=== PATIENT | male | born 1975 | race Native Hawaiian/Other Pacific Islander ===

== ENCOUNTER 2019-04-10 22:54 | Emergency (ER) | payer SELFPAY ==
--- NOTE | 2019-04-10 23:07 | ED Physician Documentation ---
PD HPI HEENT - Stated complaint Stated Complaint: EAR PX - History obtained from History obtained from: Patient - History of Present Illness Timing - onset: How many days ago (3) Timing - duration: Days (3) Timing - details: Gradual onset Location: Right ear Improves: Nothing Associated symptoms: Congestion. No: Fever, Rhinorrhea Recently seen: Not recently seen - Additional information Additional information: This is a 43-year-old man who presents with his complaints that he started to have some pain in the right ear 3 to 4 days ago and is gotten increasingly more swollen since that time. He says he has a high tolerance for pain so is r eally not hurting him that much just feels kind of numb back behind the ear. There was not ever any trauma. He feels like the ear is really raw and it is draining out "pus". He tried to flush it when he was having the discomfort when this first started and that was after that that the swelling started. He denies trauma to the ear. He does not wear hearing aid but he uses earplugs a lot. He has chronic hearing loss. He is not been running a fever. He is not diabetic. He works as a contractor. Review of Systems Constitutional: denies: Fever Ears: reports: Loss of hearing, Ear pain, Drainage/discharge Nose: reports: Congestion. denies: Rhinorrhea / runny nose Throat: denies: Sore throat PD PAST MEDICAL HISTORY - Present Medications Home Medications: Ambulatory Orders Medication Instructions Recorded Confirmed Ciprofloxacin HCl [Cipro] 500 mg PO BID #20 tablet 04/11/19 Neomycin/Polymyx/Hc Otic Drops 4 drops OT TID #1 bottle 04/11/19 [Cortisporin Ear Susp] - Allergies Allergies/Adverse Reactions: Allergies Allergy/AdvReac Type Severity Reaction Status Date / Time No Known Drug Allergies Allergy Verified 04/10/19 23:08 PD ED PE NORMAL - Vitals Vital signs reviewed: Yes - General General: Alert and oriented X 3, No acute distress, Well developed/nourished - HEENT HEENT: Atraumatic, Moist mucous membranes, Other (The right ear is diffusely swollen along the tragus the helix and antihelix and down into the ear canal. The ear canal is squeezed almost shut and there is a white debris in the ear canal itself. The mastoid is firm and not soft. He does not seem to have any pain with palpation along that region. There are no obvious pre-or postauricular nodes. The left ear canal was normal and the TM appears normal.) - Respiratory Respiratory: No respiratory distress - Derm Derm: Normal color, Warm and dry, Other (There is erythema of the right ear.) - Neuro Neuro: Alert and oriented X 3, No motor deficit, No sensory deficit, Normal speech Results - Vitals Vitals: Oxygen O2 Source Room air - Labs Labs: Laboratory Tests 04/10/19 04/10/19 23:08 23:45 WBC 12.8 H RBC 5.35 Hgb 15.5 Hct 47.8 MCV 89.3 MCH 29.0 MCHC 32.4 RDW 13.1 Plt Count 255 MPV 10.5 Neut # (Auto) 8.5 H Lymph # (Auto) 2.9 [place] # (Auto) 1.0 Eos # (Auto) 0.3 Baso # (Auto) 0.0 Absolute Nucleated RBC 0.00 Nucleated RBC % 0.0 POC Whole Bld Glucose 107 H PD MEDICAL DECISION MAKING - ED course Complexity details: reviewed results, d/w patient ED course: Patient with otitis externa without evidence of mastoiditis. He was given IV Cipro and Cortisporin ear drops. D/C with Rx for Cipro and Cortisporin ear drops and instructed on their use. Recheck with PMD if not improving. Recommend BP monitoring. Departure - Departure Disposition: 01 Home, Self Care Clinical Impression: Otitis externa Qualifiers: Otitis externa type: unspecified type Chronicity: acute Laterality: right Qualified Code(s): H60.501 - Unspecified acute noninfective otitis externa, right ear Condition: Good Instructions: ED Otitis Externa Follow-Up: [facility] [Provider Group] Moody Kim, [Physician No Access] - Prescriptions: Ciprofloxacin HCl [Cipro] 500 mg PO BID #20 tablet Neomycin/Polymyx/Hc Otic Drops [Cortisporin Ear Susp] 4 drops OT TID #1 bottle Comments: Take the oral antibiotic twice a day start first thing in the morning. Put the drops in 3 times a day. Take ibuprofen for pain and to help as an anti- inflammatory. May take 3 to 4 tablets every 8 hours with food. Your blood pressure is high here today I would recommend follow-up and monitoring with a primary care provider to see if you need blood pressure treatment. If you are not showing improvement in 48 hours you should be reevaluated. Follow-up with ENT if the pain or swelling persists or have this rechecked with the primary care provider in 10-14 days to make sure that things are improving. Discharge Date/Time: 04/11/19 00:54
[2019-04-10] MEDS ORDERED: NEOMYCIN/POLYMYX/HC OTIC DROPS RIGHTEAR STA (23:20)
[2019-04-10] MEDS ORDERED: CIPROFLOXACIN 400 MG/200 ML 200 ML IV ONE (23:20)
[2019-04-10 23:50] LABS: BASOPHILS % (AUTO) 0.3 %; EOSINOPHILS # (AUTO) 0.3 10^3/uL (0.0-0.7); HGB - HEMOGLOBIN 15.5 g/dL (14.0-18.0); LYMPHOCYTES # (AUTO) 2.9 10^3/uL (1.5-3.5); LYMPHOCYTES % (AUTO) 22.2 %; MEAN CORPUSCULAR HGB CONC 32.4 g/dL (32.0-36.0); MEAN CORPUSCULAR VOLUME 89.3 fL (80.0-94.0); MEAN PLATELET VOLUME 10.5 fL (7.4-11.4); NEUTROPHILS # (AUTO) 8.5 10^3/uL (1.5-6.6); NEUTROPHILS % (AUTO) 66.5 %; PLT - PLATELET COUNT 255 10^3/uL (130-450); RED BLOOD COUNT 5.35 10^6/uL (4.70-6.10); RED CELL DISTRIBUTION WIDTH 13.1 % (12.0-15.0); WHITE BLOOD COUNT 12.8 x10^3/uL (4.8-10.8)
[2019-04-11 00:42] VITALS: BP 163/105
== END 2019-04-11 00:54 | disposition home or self-care (01) ==
LOC: ED 22:54
DX: H60.501 Unspecified acute noninfective otitis externa, right ear (principal)
CPT/HCPCS: 36415; 85025; 96365; 99284; A9270